=== PATIENT | male | born 1995 | race Asian ===

== ENCOUNTER 2018-01-26 00:53 | Emergency (ER) | payer BC, OTHER, SELFPAY ==
[2018-01-26 00:53] VITALS: BP 145/82; PULSE 153; RESP 16; TEMP 36.9; O2SAT 98; BMI 32.3
--- NOTE | 2018-01-26 01:00 | ED.RN ---
NO OLD EKGS
--- NOTE | 2018-01-26 01:05 | EKG12_ITS ---
Test Reason : CHEST Blood Pressure : / mmHG Vent. Rate : 127 BPM Atrial Rate : 127 BPM P-R Int : 146 ms QRS Dur : 096 ms QT Int : 310 ms P-R-T Axes : 067 083 018 degrees QTc Int : 450 ms Sinus tachycardia Otherwise normal ECG Confirmed by SRIRAM ARROYO, MAY ([id number]), society editor CAROLINE TANG ([id number]) on 01/29/2018 1:58:00 PM Referred By: REBECCA Confirmed By:MAY BHATIA MD
--- NOTE | 2018-01-26 01:19 | ED.VIS.GEN ---
History of Present Illness Chief Complaint: Palpitations Informant: Patient Onset: Hours - 1.5 Context: Sudden Onset - about 15 minutes after smoking Marijuana with friends Timing: Continuous Quality: racing Location: chest Current Severity: Moderate Maximum Severity: Moderate Worsened by: nothing Relieved by: nothing Associated Symptoms: nausea and mild sob both resolved now Narrative: No other known substance ingestion. States he was breathing a lot of smoke secondhand as well, I did not smoke a whole lot firsthand. He has smoked marijuana before, but does not do so regularly. Recent Illness/Hospitalization: No Past Medical History - Allergies and Home Meds Allergies/Adverse Reactions: Allergies POLEN Allergy (Uncoded 01/26/18 00:55) Other Home Medications: Home Medications Medication Instructions Recorded NK [NK] 01/26/18 Primary Care Physician: NOT,DEFINED [NON-STAFF] - Past Medical History: None Smoking Status: Current some day smoker Drugs: Marijuana Review of Systems All systems negative except as indicated General: Denies: Fever ENT: Reports: - - dry mouth Cardiovascular: Reports: Palpitations, Heart racing. Denies: Chest pain Respiratory: Reports: Dyspnea - just after smoking. gone now.. Denies: Cough Neurological: Reports: - - no lightheadedness/presyncope/syncope Physical Exam Vital Signs/Narrative: Vital Signs Temp Pulse Resp BP Pulse Ox 01/26/18 00:53 98.4 F 153 H 16 145/82 H 98 Inital Vital Signs reviewed: Yes General: Well nourished, Well developed Head: Normocephalic, Atraumatic Eyes: Perrl, EOMI ENT: Moist mucous membranes, No rhinorrhea, - - no facial flushing Neck: Supple, Nontender, No JVD Cardiovascular: Regular rate, Regular rhythm, No murmurs, Tachycardia Respiratory: No distress, CTA bilaterally, Chest nontender Abdomen: Soft, Nontender, Nondistended, Normal bowel sounds Back: Nontender, Normal Inspection Extremities: Nontender, No edema Skin: Normal color, No rash Neurological: Alert, Oriented x3, Cranial nerves II-XII grossly intact, Normal Strength, Normal Sensation, Normal Gait Psychological: Normal affect - calm, at ease Diagnostic/Tx/Re-eval - Rhythm Strip Rhythm Strip: Sinus Tach Rate: 140 Ectopy: None - EKG 1 Interpretation: No Acute Injury Pattern, Sinus Tachycardia - 127, - - nml axis. otherwise nml EKG. - Medical Decision Making Patient was amenable to getting some Ativan but preferred it orally. He was given 1 mg, on reevaluation his heart rate is down to around 112 and he still feels like his heart is a little faster but he feels definitely improved. He is comfortable with discharge home. Supportive care advised along with avoiding marijuana. We did discuss the fact that oftentimes, marijuana may be laced with other substances, and he may or may not know what those are, and we may or may not be able to test for those, he understands that and will avoid drugs. ED Disposition - Plan for ED Patient: Disposition: Home or Assisted Living Chief Complaint: Palpitations Diagnosis: Heart palpitations, Marijuana use, episodic Instructions: ED Palpitations Referrals: Wanda Alvarez DO [STAFF PHYSICIAN] - 3-5 Days if not improving
[2018-01-26] MEDS: LORazepam 1 MG Tablet PO (01:25)
[2018-01-26 02:17] VITALS: BP 136/64; PULSE 113; RESP 16; O2SAT 96
[2018-01-26 02:35] VITALS: PULSE 113
== END 2018-01-26 02:35 | disposition home or self-care (01) ==
PROVIDERS: Emergency Provider Emergency Medicine; Family Provider Family Medicine; PCP Family Medicine
DX: R00.2 Palpitations (principal); F12.90 Cannabis use, unspecified, uncomplicated
CPT/HCPCS: 93005; 99282

== ENCOUNTER 2018-01-26 15:32 | Emergency (ER) | payer BC, OTHER, SELFPAY ==
[2018-01-26 15:33] VITALS: BP 142/74; PULSE 103; RESP 14; TEMP 36.9; O2SAT 98; BMI 34.5
[2018-01-26 16:00] VITALS: BP 131/63; PULSE 89; RESP 15; O2SAT 95
--- NOTE | 2018-01-26 16:13 | ED.VISSUMM ---
- ER Visit Summary Date of Service: 01/26/18 Chief Complaint: Palpitations History of Present Illness: The patient is a 22 M who states that yesterday after smoking marijuana his heart rate was very fast. He came to the emergency department had negative EKG. States his heart rate was upwards of 150 beats a minute and came down to the 80s. He states he has had developed some vomiting and some diarrhea. Been noted that several individuals in the community have developed vomiting diarrhea after smoking marijuana past 48 hours. Patient states today he feels his heart start to speed up and then come back down. Physical Examination: Afebrile vital signs are stable Gen: Well-nourished well-developed Head: Normocephalic atraumatic Eyes: Perrl EOMI ENT: TMs clear no rhinorrhea moist mucous membranes Neck: Supple no lymphadenopathy no JVD nontender CVS: Regular rate rhythm no murmurs normal S1-S2 Respiratory: No distress clear to auscultation bilaterally chest nontender Abdomen: Soft nontender nondistended normal bowel sounds no masses Back: Nontender Extremity: Nontender no edema Skin: Normal color no rash Neuro: alert orientated ?3 CN II-XII intact normal strength sensation reflexes gait cerebellar Psych: Anxious EKG showed a sinus rhythm with normal intervals. Chest x-ray negative no pneumothorax. CBC with a white count of 11. Chemistries and troponin negative. Emergency Department Course and Treatment: The previous visit was reviewed. Patient's heart rate has been in the 80s sometimes up into the 90s and as he watches the monitor goes upwards of 110. It is sinus. It is regular. I believe he is having a normal response to anxiety. Patient is to refrain from smoking marijuana. Impression: 1. Palpitations 2. Anxiety This note was generated with [employer] software. It may contain incorrect words, spelling, and punctuation that were not noted in review of the chart prior to signing ED Disposition - Plan for ED Patient: Disposition: Home or Assisted Living Chief Complaint: Palpitations Instructions: ED Palpitations Referrals: Shiloh Brambila MD [Primary Care Provider] - 1 Week Additional Instructions: Please avoid ingestion of any street drugs.
--- NOTE | 2018-01-26 16:23 | EKG12_ITS ---
Test Reason : PALP Blood Pressure : / mmHG Vent. Rate : 088 BPM Atrial Rate : 088 BPM P-R Int : 132 ms QRS Dur : 102 ms QT Int : 354 ms P-R-T Axes : 028 090 028 degrees QTc Int : 428 ms Normal sinus rhythm with sinus arrhythmia Normal ECG Confirmed by SRIRAM ARROYO, MAY ([id number]), marketing editor CAROLINE TANG ([id number]) on 01/29/2018 2:10:47 PM Referred By: Confirmed By:MAY BHATIA MD
--- NOTE | 2018-01-26 16:24 | RAD_ITS ---
STUDY: X-RAY CHEST REASON FOR EXAM: Male, 22 years old. Palpitation TECHNIQUE: Frontal and lateral views of the chest COMPARISON: None. FINDINGS: The lungs are clear. There are no pleural effusions. There is no pneumothorax. The heart is normal in size. The visualized osseous structures are within normal limits. RAD/Chest PA and Lateral IMPRESSION: No acute thoracic pathology. Electronically Signed: Favio Hebert, at 17:11 EDT Tel , Service support ,
[2018-01-26 17:01] LABS: Absolute Lymphocyte Count 2.25 X10^3/ul (0.83-4.51); Absolute Neutrophil Count 8.1 X10^3/uL (2.0-7.7); Basophil# 0.03 X10^3/uL; Basophil% 0.3 % (0-1); Eosinophil# 0.03 X10^3/uL; Eosinophils% 0.3 % (0-5); Hematocrit 45.2 % (40-54); Hemoglobin 15.7 g/dl (13.0-16.5); Lymphocyte # 2.25 X10^3/ul (4.0); Lymphocyte % 20.2 % (19-41); Mean Corp Hgb Conc 34.7 g/gl (32-36); Mean Corpuscular Hgb 31.3 pg (27.0-32.0); Mean Platelet Vol. 9.9 fl (6.2-12.0); Monocyte# 0.75 X10^3/uL; Monocyte% 6.7 % (0-10); Neutrophil # 8.05 X10^3/uL (2.7-7.7); Neutrophil % 72.3 % (47-70); Platelet Count 298 K/mm3 (150-450); RBC Distribution Width CV 11.7 % (11.6-14.6); RBC Distribution Width SD 37.9 fl (35.1-43.9); Red Blood Count 5.02 M/mm3 (4.6-6.2); White Blood Count 11.1 K/mm3 (4.4-11.0)
[2018-01-26 17:03] LABS: POSITIVE COUNT NO; POSITIVE DIFFERENTIAL NO; POSITIVE MORPHOLOGY NO
[2018-01-26 17:17] LABS: Anion Gap 9 (5-15); BUN 12 mg/dL (7-18); Calcium,Total 9.7 mg/dL (8.5-10.1); Chloride 106 mmol/L (98-107); Creatinine, Serum 1.09 mg/dL (0.70-1.30); EST Glomerular Filtration Rate 90 mL/min (>60); Est Glom Filt Rate - Afr Amer 109 mL/min (>60); Estimated Creatinine Clearance 89.77 ml/min; Glucose 100 mg/dL (74-106); Potassium 3.6 mmol/L (3.5-5.1); Sodium Level 139 mmol/L (136-145)
[2018-01-26 17:32] VITALS: BP 146/78; PULSE 96; RESP 17; O2SAT 96
[2018-01-26 17:40] LABS: Amphetamine Urine VISTA NEGATIVE (<1000 ng/mL); Barbiturate Urine VISTA NEGATIVE (< 200 ng/mL); Benzodiazepine Urine VISTA NEGATIVE (< 200 ng/mL); Cocaine Urine VISTA NEGATIVE (< 300 ng/mL); Ecstacy Urine VISTA NEGATIVE (< 500 ng/mL); Methadone Urine VISTA NEGATIVE (< 300 ng/mL); PCP Urine VISTA NEGATIVE (< 25 ng/mL); THC Urine VISTA POSITIVE (< 50 ng/mL); Vista UDS pH Range 7
== END 2018-01-26 17:33 | disposition home or self-care (01) ==
PROVIDERS: Emergency Provider Emergency Medicine; Family Provider Family Medicine; PCP Family Medicine
DX: R00.2 Palpitations (principal); F41.9 Anxiety disorder, unspecified; F12.90 Cannabis use, unspecified, uncomplicated
CPT/HCPCS: 71046; 80048; 80307; 84484; 85025; 93005; 99283

== ENCOUNTER 2018-01-28 20:27 | Emergency (ER) | payer BC, OTHER, SELFPAY ==
[2018-01-28 20:29] VITALS: BP 147/83; PULSE 84; RESP 16; TEMP 36.7; O2SAT 95; BMI 32.3
[2018-01-28 20:46] LABS: Mucous, Urine 0 SEEN /hpf (<or=2+); Red Blood Cells-Urine 0 SEEN /hpf (0-5); White Blood Cells 0 SEEN /hpf (0-5)
[2018-01-28 20:47] LABS: Color, Urine Yellow (Yellow); Glucose, Dipstick Normal (Normal); Ketone-Dipstick Negative (Negative); Leukocyte Esterase-Dipstick Negative /ul (Negative); Nitrite-Dipstick Negative (Negative); Occult Blood-Urine Negative /ul (Negative); Protein-Dipstick 15 mg/dl (Negative); Urine Bilirubin Dipstick Negative (Negative); Urine Clarity Clear (Clear); Urine Urobilinogen 1 mg/dl (Normal)
[2018-01-28 20:53] LABS: Bacteria RARE /hpf (None Seen); Squamous Epithelial Cells - UA 0-5 SEEN /hpf (0-5)
[2018-01-28 21:50] LABS: Absolute Lymphocyte Count 2.88 X10^3/ul (0.83-4.51); Absolute Neutrophil Count 7.6 X10^3/uL (2.0-7.7); Basophil# 0.04 X10^3/uL; Basophil% 0.4 % (0-1); Eosinophil# 0.14 X10^3/uL; Eosinophils% 1.2 % (0-5); Hematocrit 42.7 % (40-54); Hemoglobin 14.5 g/dl (13.0-16.5); Lymphocyte # 2.88 X10^3/ul (4.0); Lymphocyte % 25.5 % (19-41); Mean Corpuscular Hgb 30.5 pg (27.0-32.0); Mean Corpuscular Volume 89.7 fL (80-94); Mean Platelet Vol. 9.7 fl (6.2-12.0); Monocyte# 0.61 X10^3/uL; Monocyte% 5.4 % (0-10); Neutrophil % 67.4 % (47-70); POSITIVE COUNT NO; POSITIVE DIFFERENTIAL NO; POSITIVE MORPHOLOGY NO; Platelet Count 254 K/mm3 (150-450); RBC Distribution Width CV 11.6 % (11.6-14.6); RBC Distribution Width SD 37.7 fl (35.1-43.9); Red Blood Count 4.76 M/mm3 (4.6-6.2); White Blood Count 11.3 K/mm3 (4.4-11.0)
[2018-01-28 22:04] LABS: Anion Gap 7 (5-15); BUN 13 mg/dL (7-18); Calcium,Total 9.2 mg/dL (8.5-10.1); Chloride 108 mmol/L (98-107); Creatinine, Serum 1.18 mg/dL (0.70-1.30); EST Glomerular Filtration Rate 83 mL/min (>60); Est Glom Filt Rate - Afr Amer 100 mL/min (>60); Glucose 96 mg/dL (74-106); Potassium 3.8 mmol/L (3.5-5.1); Sodium Level 142 mmol/L (136-145)
--- NOTE | 2018-01-28 22:11 | ED.DCSUM_ITS ---
- ER Visit Summary Date of Service: 01/28/18 Chief Complaint: Abdominal pain History of Present Illness: The patient is a 22 M with epigastric abdominal pain. The pain has been intermittent over the last 2 days. He also feels nauseated and bloated. He has had 2 episodes of vomiting and also diarrhea. Nonbloody. Occasional skin itching. Occasionally over the last 2 days, his scrotum swells. It is nonpainful and lasts less than a minute. Denies any testicular pain, lumps, masses, discharge, or bleeding. He never had this before. Physical Examination: Hypertensive but otherwise vitals unremarkable. Afebrile. Nontoxic and in no acute distress. Abdomen is soft, nondistended, no guarding, no rebound. Slight tenderness in the epigastric region. No right upper quadrant tenderness. No masses. Negative Chen's sign. No pain at McBurney's point. exam unremarkable. No swelling noted. No masses, discharge, lesions, or tenderness noted. Test Results: CBC, BMP, urinalysis unremarkable. I did add a hepatic function. Results are pending. Emergency Department Course and Treatment: CBC unremarkable. CMP unremarkable. Urinalysis unremarkable. Patient was treated with a GI cocktail. Patient has epigastric pain. I suspect a gastric etiology, gastritis, reflux, etc. Infectious causes also considered. Nothing to suggest cardiac, pulmonary, vascular, neurologic causes. No sign of hernia, bowel obstruction, or other surgical process. Patient will be discharged to follow-up with his primary care doctor. Prescription for Pepcid. Return for any new or worsening issues. Treatment Plan: As above Disposition: Discharged Impression: 1. Epigastric pain This note was generated with [employer] dictation software. It may contain incorrect words, spelling, and punctuation that were not noted in review of the chart prior to signing ED Disposition - Plan for ED Patient: Chief Complaint: Abd Pain Referrals: Shiloh Brambila MD [Primary Care Provider] -
[2018-01-28 22:27] LABS: AST(SGOT) 16 U/L (15-37); Alanine Aminotransfer ALT/SGPT 38 U/L (16-61); Albumin, Serum 4.2 g/dL (3.2-5.0); Alkaline Phosphatase 79 U/L (45-117); Bilirubin, Direct 0.13 mg/dL (0.00-0.30); Globulin 3.6 g/dL (2.2-4.2); Protein, Total 7.8 g/dL (6.4-8.2)
--- NOTE | 2018-01-28 22:52 | ED.DEP ---
ED Disposition - Plan for ED Patient: Chief Complaint: Abd Pain Instructions: ED Abdominal Pain Unkn Cause Prescriptions: Famotidine [Pepcid] 20 mg PO BID #28 tab Referrals: Shiloh Brambila MD [Primary Care Provider] -
[2018-01-28 23:08] VITALS: BP 121/76; PULSE 70; RESP 18; O2SAT 99
== END 2018-01-28 23:10 | disposition home or self-care (01) ==
LOC: ED 22:12
PROVIDERS: Emergency Provider Emergency Medicine; Family Provider Family Medicine; PCP Family Medicine
DX: R10.13 Epigastric pain (principal); F12.90 Cannabis use, unspecified, uncomplicated
CPT/HCPCS: 36415; 80048; 80076; 81001; 85025; 99282